=== PATIENT | female | born 1965 | race African-American/Black ===

== ENCOUNTER 2022-03-17 19:14 | Emergency (ER) | payer OTHER ==
[~2022-03-17] VITALS: Ht 165.1 cm; Wt 82.0 kg
[~2022-03-17 19:14] MED LIST: AMLO10TA80 PO; ATOR10TA69 PO; METF-414 PO
[2022-03-17] MEDS ORDERED: METHYLPREDNISOLONE SOD SUCC 125 MG/2 ML VIAL IV STA (19:47)
[2022-03-17] MEDS ORDERED: ALBUTEROL (0.083%) 2.5MG/3ML NEB HHN STA (19:47)
[2022-03-17] MEDS ORDERED: IPRATROPIUM BROMIDE (0.02%) 0.5MG/2.5ML NEB HHN STA (19:47)
[2022-03-17] MEDS ORDERED: ACETAMINOPHEN 325MG TABLET PO ONE (20:00)
[2022-03-17 20:27] LABS: BASOPHILS % 0.6 % (0.0-2.0); HEMATOCRIT. 40.3 % (36.0-48.0); HEMOGLOBIN. 12.8 g/dL (12.0-16.0); LYMPHOCYTES % 30.8 % (20.0-50.0); MEAN CORPUSCULAR HEMOGLOBIN 26.7 pg (28.0-32.0); MEAN CORPUSCULAR VOLUME 83.9 fL (81.0-99.0); MEAN PLATELET VOLUME 8.5 fl (7.4-10.4); MONOCYTES % 8.1 % (2.0-8.0); NEUTROPHILS % 53.5 % (40.0-76.0); PLATELET 225 x1000/uL (130-400); RED CELL DISTRIBUTION WIDTH 15.9 % (11.6-14.6)
[2022-03-17 20:32] LABS: CHLORIDE 103 mEq/L (98-107)
[2022-03-17 20:48] LABS: CLARITY URINE CLEAR (CLEAR); COLOR URINE YELLOW (YELLOW); KETONES URINE NEGATIVE (NEGATIVE); LEUKOCYTE ESTERASE URINE 3+ (NEGATIVE); NITRITE URINE NEGATIVE (NEGATIVE); OCCULT BLOOD URINE TRACE (NEGATIVE); PH URINE 5.5 (4.5-8.0); PROTEIN URINE NEGATIVE (NEGATIVE); SPECIFIC GRAVITY URINE 1.008 (1.005-1.030); UROBILINOGEN URINE 0.2 E.U./dL (0.2-1.0)
[2022-03-17] MEDS ORDERED: ALBU6.7H9 INH (23:20)
[2022-03-17] MEDS ORDERED: P50 MT (23:20)
[2022-03-17 23:45] VITALS: BP 103/56
== END 2022-03-17 23:55 | disposition home or self-care (01) ==
LOC: ER 19:56
DX: J44.1 Chronic obstructive pulmonary disease with (acute) exacerbation (principal); E78.00 Pure hypercholesterolemia, unspecified; I10 Essential (primary) hypertension; F17.290 Nicotine dependence, other tobacco product, uncomplicated; Z88.0 Allergy status to penicillin
CPT/HCPCS: 36415; 71045; 80053; 81003; 83880; 84484; 85025; 87086; 94640; 96374; 99284; J2930; Z7610

== ENCOUNTER 2022-05-06 17:48 | Emergency (ER) | payer OTHER ==
[~2022-05-06] VITALS: Ht 165.1 cm; Wt 86.0 kg
[~2022-05-06 17:48] MED LIST changes: +ALBU6.7H9 INH; +P50 MT
[2022-05-06] MEDS ORDERED: ALBUTEROL (0.083%) 2.5MG/3ML NEB HHN STA (18:36)
[2022-05-06] MEDS ORDERED: METHYLPREDNISOLONE SOD SUCC 125 MG/2 ML VIAL IV STA (18:36)
[2022-05-06] MEDS ORDERED: IPRATROPIUM BROMIDE (0.02%) 0.5MG/2.5ML NEB HHN STA (18:36)
[2022-05-06 18:44] LABS: BASOPHILS % 0.6 % (0.0-2.0); EOSINOPHILS % 7.6 % (0.0-5.0); HEMATOCRIT. 42.6 % (36.0-48.0); HEMOGLOBIN. 13.8 g/dL (12.0-16.0); LYMPHOCYTES % 28.7 % (20.0-50.0); MEAN CORPUSCULAR HEMOGLOBIN 26.7 pg (28.0-32.0); MEAN CORPUSCULAR VOLUME 82.7 fL (81.0-99.0); MEAN PLATELET VOLUME 8.3 fl (7.4-10.4); MONOCYTES % 8.2 % (2.0-8.0); NEUTROPHILS % 54.9 % (40.0-76.0); PLATELET 234 x1000/uL (130-400); RED BLOOD CELL COUNT 5.15 mill/uL (4.2-5.4); RED CELL DISTRIBUTION WIDTH 16.6 % (11.6-14.6)
[2022-05-06] MEDS ORDERED: ONDANSETRON HCL 4MG/2ML INJ IV ONE (18:45)
[2022-05-06] MEDS ORDERED: KETOROLAC 15MG/ML VIAL IV ONE (18:45)
[2022-05-06 18:53] LABS: CHLORIDE 107 mEq/L (98-107)
[2022-05-06] MEDS ORDERED: P50 MT ×3 (20:23→23:28)
[2022-05-06 21:08] VITALS: BP 101/61
== END 2022-05-06 21:31 | disposition home or self-care (01) ==
LOC: ER 18:09
DX: J45.901 Unspecified asthma with (acute) exacerbation (principal); I10 Essential (primary) hypertension; Z79.51 Long term (current) use of inhaled steroids; Z88.0 Allergy status to penicillin; Z79.899 Other long term (current) drug therapy
CPT/HCPCS: 36415; 71045; 80053; 83690; 85025; 93005; 94640; 96374; 96375; 99285; J1885; J2405; J2930; Z7610

== ENCOUNTER 2022-12-04 06:32 | Emergency (ER) | payer OTHER, MEDICAID ==
[~2022-12-04] VITALS: Ht 165.1 cm; Wt 70.0 kg
[~2022-12-04 06:32] MED LIST changes: +ALBU6.7H3 INH; -ALBU6.7H9 INH
[2022-12-04 08:11] LABS: BASOPHILS % 0.3 % (0.0-2.0); EOSINOPHILS % 3.9 % (0.0-5.0); HEMATOCRIT. 38.5 % (36.0-48.0); HEMOGLOBIN. 12.7 g/dL (12.0-16.0); LYMPHOCYTES % 20.5 % (20.0-50.0); MEAN CORPUSCULAR HEMOGLOBIN 27.9 pg (28.0-32.0); MEAN CORPUSCULAR VOLUME 84.7 fL (81.0-99.0); MEAN PLATELET VOLUME 8.4 fl (7.4-10.4); MONOCYTES % 9.8 % (2.0-8.0); NEUTROPHILS % 65.5 % (40.0-76.0); PLATELET 204 x1000/uL (130-400); RED BLOOD CELL COUNT 4.55 mill/uL (4.2-5.4)
[2022-12-04 08:16] LABS: CHLORIDE 111 mEq/L (98-107)
[2022-12-04] MEDS ORDERED: IPRATROPIUM BROMIDE (0.02%) 0.5MG/2.5ML NEB HHN STA (08:16)
[2022-12-04] MEDS ORDERED: METHYLPREDNISOLONE SOD SUCC 125 MG/2 ML VIAL IV STA (08:16)
[2022-12-04] MEDS ORDERED: ALBUTEROL (0.083%) 2.5MG/3ML NEB HHN SCH (08:30)
[2022-12-04] MEDS ORDERED: ALBUTEROL (0.5%) 2.5MG/0.5ML NEB HHN ONE (10:49)
[2022-12-04] MEDS ORDERED: IPRATROPIUM BROMIDE (0.02%) 0.5MG/2.5ML NEB ONE (10:50)
[2022-12-04 11:04] VITALS: BP 126/84
[2022-12-04] MEDS ORDERED: P20 MT (12:17)
[2022-12-04] MEDS ORDERED: ALBU6.7H3 INH (12:17)
== END 2022-12-04 12:50 | disposition home or self-care (01) ==
LOC: ER 06:32
DX: J44.1 Chronic obstructive pulmonary disease with (acute) exacerbation (principal); Z20.822 Contact with and (suspected) exposure to COVID-19; F17.210 Nicotine dependence, cigarettes, uncomplicated; I10 Essential (primary) hypertension; E11.9 Type 2 diabetes mellitus without complications; E78.5 Hyperlipidemia, unspecified; K21.9 Gastro-esophageal reflux disease without esophagitis
CPT/HCPCS: 36415; 71045; 80053; 85025; 87426; 87804; 93005; 94640; 96374; 99285; C9803; J2930; Z7610

== ENCOUNTER 2022-12-21 14:07 | Emergency (ER) | payer OTHER, MEDICAID ==
[~2022-12-21] VITALS: Ht 165.1 cm; Wt 80.0 kg
[~2022-12-21 14:07] MED LIST changes: +P20 MT
[2022-12-21 14:16] VITALS: BP 139/94
[2022-12-21 16:18] LABS: BASOPHILS % 0.5 % (0.0-2.0); EOSINOPHILS % 3.2 % (0.0-5.0); HEMATOCRIT. 41.2 % (36.0-48.0); HEMOGLOBIN. 13.6 g/dL (12.0-16.0); LYMPHOCYTES % 29.2 % (20.0-50.0); MEAN CORPUSCULAR HEMOGLOBIN 28.2 pg (28.0-32.0); MEAN CORPUSCULAR VOLUME 85.6 fL (81.0-99.0); MEAN PLATELET VOLUME 7.8 fl (7.4-10.4); MONOCYTES % 7.8 % (2.0-8.0); NEUTROPHILS % 59.3 % (40.0-76.0); PLATELET 249 x1000/uL (130-400); RED BLOOD CELL COUNT 4.81 mill/uL (4.2-5.4); RED CELL DISTRIBUTION WIDTH 15.9 % (11.6-14.6)
[2022-12-21 16:25] LABS: PROTHROMBIN TIME 10.3 sec (9.6-11.0)
[2022-12-21 16:35] LABS: CHLORIDE 106 mEq/L (98-107)
[2022-12-21] MEDS ORDERED: KETOROLAC 30MG/ML VIAL IV NR ×2 (17:45→18:30)
[2022-12-21 18:39] LABS: CLARITY URINE CLEAR (CLEAR); COLOR URINE YELLOW (YELLOW); KETONES URINE TRACE (NEGATIVE); LEUKOCYTE ESTERASE URINE TRACE (NEGATIVE); NITRITE URINE NEGATIVE (NEGATIVE); OCCULT BLOOD URINE NEGATIVE (NEGATIVE); PH URINE 6.5 (4.5-8.0); PROTEIN URINE TRACE (NEGATIVE); SPECIFIC GRAVITY URINE 1.024 (1.005-1.030)
[2022-12-21] MEDS ORDERED: FAMOTIDINE 20MG TABLET PO ONE (19:30)
[2022-12-21] MEDS ORDERED: ONDANSETRON HCL 4MG/2ML INJ IV ONE (19:30)
[2022-12-21] MEDS ORDERED: IOHEXOL-300 100 ML BOTTLE ONE (21:04)
[2022-12-21] MEDS ORDERED: CIPR-263 MT (22:19)
[2022-12-21] MEDS ORDERED: FAMO-135 MT (22:23)
[2022-12-21] MEDS ORDERED: TOPUD MT (22:23)
== END 2022-12-21 22:50 | disposition home or self-care (01) ==
LOC: ER 14:20
DX: R10.84 Generalized abdominal pain (principal); E78.00 Pure hypercholesterolemia, unspecified; I10 Essential (primary) hypertension; E11.9 Type 2 diabetes mellitus without complications; J45.909 Unspecified asthma, uncomplicated; Z88.0 Allergy status to penicillin; Z79.899 Other long term (current) drug therapy; Z98.890 Other specified postprocedural states; Z90.49 Acquired absence of other specified parts of digestive tract
CPT/HCPCS: 36415; 74177; 80053; 81003; 83605; 83690; 85025; 85610; 96374; 96375; 99285; J1885; J2405; Q9967

== ENCOUNTER 2023-04-06 16:55 | Emergency (ER) | payer OTHER ==
[~2023-04-06] VITALS: Ht 165.1 cm; Wt 78.0 kg
[~2023-04-06 16:55] MED LIST changes: +CIPR-263 MT; +FAMO-135 MT; +TOPUD MT
[2023-04-06 17:27] LABS: BASOPHILS % 0.7 % (0.0-2.0); HEMATOCRIT. 39.9 % (36.0-48.0); HEMOGLOBIN. 13.5 g/dL (12.0-16.0); LYMPHOCYTES % 36.1 % (20.0-50.0); MEAN CORPUSCULAR HEMOGLOBIN 28.3 pg (28.0-32.0); MEAN CORPUSCULAR VOLUME 83.8 fL (81.0-99.0); MEAN PLATELET VOLUME 7.8 fl (7.4-10.4); NEUTROPHILS % 53.2 % (40.0-76.0); PLATELET 230 x1000/uL (130-400); RED BLOOD CELL COUNT 4.77 mill/uL (4.2-5.4); RED CELL DISTRIBUTION WIDTH 14.7 % (11.6-14.6)
[2023-04-06 17:33] LABS: CLARITY URINE CLEAR (CLEAR); COLOR URINE YELLOW (YELLOW); KETONES URINE TRACE (NEGATIVE); LEUKOCYTE ESTERASE URINE TRACE (NEGATIVE); NITRITE URINE NEGATIVE (NEGATIVE); OCCULT BLOOD URINE NEGATIVE (NEGATIVE); PH URINE 5.5 (4.5-8.0); PROTEIN URINE NEGATIVE (NEGATIVE); SPECIFIC GRAVITY URINE 1.023 (1.005-1.030); UROBILINOGEN URINE 0.2 E.U./dL (0.2-1.0)
[2023-04-06 17:39] LABS: CHLORIDE 105 mEq/L (98-107)
[2023-04-06] MEDS ORDERED: OMEP40CA20 MT (20:13)
[2023-04-06] MEDS ORDERED: MAGNESIUM/ALUMINUM HYDROXIDE/SIMETHICONE 30ML UDC PO ONE (20:30)
[2023-04-06 20:45] VITALS: BP 124/83
== END 2023-04-06 20:46 | disposition home or self-care (01) ==
LOC: ER 16:55
DX: R10.11 Right upper quadrant pain (principal); J45.909 Unspecified asthma, uncomplicated; E11.9 Type 2 diabetes mellitus without complications; E78.00 Pure hypercholesterolemia, unspecified; I10 Essential (primary) hypertension; Z90.710 Acquired absence of both cervix and uterus
CPT/HCPCS: 36415; 74176; 80053; 81003; 85025; 99284

== ENCOUNTER 2023-07-20 16:36 | Emergency (ER) | payer OTHER ==
[~2023-07-20] VITALS: Ht 165.1 cm; Wt 79.0 kg
[~2023-07-20 16:36] MED LIST changes: +OMEP40CA20 MT
[2023-07-20 17:06] VITALS: O2SAT 97
[2023-07-20 18:10] LABS: BASOPHILS % 0.3 % (0.0-2.0); EOSINOPHILS % 2.6 % (0.0-5.0); HEMATOCRIT. 37.5 % (36.0-48.0); HEMOGLOBIN. 12.6 g/dL (12.0-16.0); LYMPHOCYTES % 10.1 % (20.0-50.0); MEAN CORPUSCULAR HEMOGLOBIN 29.3 pg (28.0-32.0); MEAN CORPUSCULAR HGB CONC 33.5 g/dL (31.0-37.0); MEAN CORPUSCULAR VOLUME 87.4 fL (81.0-99.0); MEAN PLATELET VOLUME 7.6 fl (7.4-10.4); PLATELET 225 x1000/uL (130-400); RED BLOOD CELL COUNT 4.29 mill/uL (4.2-5.4); RED CELL DISTRIBUTION WIDTH 15.4 % (11.6-14.6); WHITE BLOOD COUNT 7.6 x1000/uL (4.5-11.0)
[2023-07-20 18:21] LABS: CHLORIDE 109 mEq/L (98-107); INDEX HEMOLYSI 1 (1-3); INDEX ICTERIC 1 (1-4); INDEX LIPEMIC 1 (1-3); POTASSIUM 3.7 mEq/L (3.5-5.1); SODIUM 140 mEq/L (136-145)
[2023-07-20 18:36] LABS: ALANINE AMINOTRANSFERASE 45 IU/L (13-61); ALBUMIN 3.5 g/dL (3.4-5.0); ASPARTATE AMINOTRANSFERASE 32 IU/L (15-37); BILIRUBIN TOTAL 0.5 mg/dL (0.1-1.0); CALCIUM 8.8 mg/dL (8.5-10.1); CARBON DIOXIDE 28 mEq/L (21-32); CREATININE 1.1 mg/dL (0.6-1.3); GLUCOSE 108 mg/dL (70-105); PROTEIN TOTAL 7.8 g/dL (6.0-8.3); UREA NITROGEN BLOOD 14 mg/dL (7-21)
[2023-07-20] MEDS ORDERED: KETOROLAC 30MG/ML VIAL IM ONE (18:45)
[2023-07-20] MEDS ORDERED: KETOROLAC 30MG/ML VIAL IM NR (18:45)
[2023-07-20 20:45] VITALS: BP 140/95
[2023-07-20] MEDS ORDERED: IOHEXOL-350 100 ML BOTTLE ONE (21:55)
[2023-07-20] MEDS ORDERED: IBUP-2028 MT (22:56)
[2023-07-20 23:31] VITALS: PULSE 90; RESP 18; TEMP 98.5
== END 2023-07-20 23:32 | disposition home or self-care (01) ==
LOC: ER 16:36
DX: I10 Essential (primary) hypertension (principal); Z85.9 Personal history of malignant neoplasm, unspecified; J45.909 Unspecified asthma, uncomplicated; E11.9 Type 2 diabetes mellitus without complications; E78.00 Pure hypercholesterolemia, unspecified; Z90.710 Acquired absence of both cervix and uterus; Z90.49 Acquired absence of other specified parts of digestive tract
CPT/HCPCS: 80053; 85025; 36415; 70491; 96372; 99285; Q9967; J1885; Z7610 ×2